=== PATIENT | female | born 1940 | race Caucasian/White ===

== ENCOUNTER 2019-03-11 08:13 | Emergency (ER) | payer MEDICARE ==
[2019-03-11 08:48] LABS: BASOPHILS % (AUTO) 0.5 % (0.0-5.0); EOSINOPHILS % (AUTO) 1.2 % (0.0-8.0); HEMATOCRIT 46.6 % (36-48); LYMPHOCYTES % (AUTO) 15.4 % (21.0-51.0); MEAN CORPUSCULAR HEMOGLOBIN 30.7 pg (27.0-33.0); MEAN CORPUSCULAR HGB CONC 33.4 g/dL (32.0-36.0); MEAN CORPUSCULAR VOLUME 91.9 fL (79-99); MONOCYTES % (AUTO) 7.6 % (3.0-13.0); NEUTROPHILS % (AUTO) 75.3 % (40.0-77.0); NUCLEATED RED BLOOD CELLS 0.1 % (0.0-0.19); PLATELET COUNT (AUTO) 134 K/uL (130-400); RED BLOOD CELL COUNT(AUTO) 5.07 MIL/uL (4.00-5.50); RED CELL DISTRIBUTION WIDTH 13.7 % (11.0-15.5); WHITE BLOOD COUNT (AUTO) 8.3 K/uL (4.8-10.8)
[2019-03-11 08:56] LABS: CREATININE 0.8 mg/dL (0.5-1.5); POTASSIUM 3.8 mmol/L (3.5-5.1)
[2019-03-11 09:00] LABS: ALBUMIN 3.8 g/dL (3.5-5.0); TOTAL PROTEIN, SERUM 7.3 g/dL (6.0-8.3)
[2019-03-11] MEDS ORDERED: DIAZEPAM 2 MG TAB ONE (09:22)
[2019-03-11] MEDS ORDERED: SODIUM CHLORIDE 0.9% 1000ML 1,000 ML IV ONE (09:23)
[2019-03-11] MEDS ORDERED: IOHEXOL 350 MG/ML 100ML INFUS..BTL IV ONE (09:34)
[2019-03-11] MEDS ORDERED: ASPIRIN 81MG TAB.CHEW ONE (09:58)
[2019-03-11 10:40] LABS: APPEARANCE,URINE Clear (CLEAR); BILIRUBIN,URINE Negative (NEGATIVE); COLOR,URINE Yellow (YELLOW); GLUCOSE, URINE (UA) Negative (NEGATIVE); KETONES,URINE Negative (NEGATIVE); LEUKOCYTE ESTERASE ,URINE Negative (NEGATIVE); NITRATE,URINE Negative (NEGATIVE); OCCULT BLOOD,URINE Negative (NEGATIVE); PH,URINE 5.5 (5.0-8.0); PROTEIN,URINE Negative (NEGATIVE); UROBILINOGEN,URINE 0.2 mg/dL (0.2-1.0)
== END 2019-03-11 11:56 | disposition home or self-care (01) ==
LOC: EDH 08:13
DX: S22.32XA Fracture of one rib, left side, initial encounter for closed fracture (principal); I48.91 Unspecified atrial fibrillation; X58.XXXA Exposure to other specified factors, initial encounter; Y93.89 Activity, other specified; Y92.89 Other specified places as the place of occurrence of the external cause; Y99.8 Other external cause status
CPT/HCPCS: 36415; 71260; 74177; 80053; 81003; 83690; 84484; 85025; 93005 ×2; 99285; J7030; Q9967

== ENCOUNTER → 2025-01-07 | Outpatient (CLI) | payer MEDICARE | END | disposition home or self-care (01) | LOC: WHH 08:05 | PROVIDERS: ATTEND Family Medicine | DX: S81.001D Unspecified open wound, right knee, subsequent encounter (principal); L97.412 Non-pressure chronic ulcer of right heel and midfoot with fat layer exposed; I10 Essential (primary) hypertension; E03.9 Hypothyroidism, unspecified; I48.91 Unspecified atrial fibrillation; F32.A Depression, unspecified; Z79.01 Long term (current) use of anticoagulants; W31.89XD Contact with other specified machinery, subsequent encounter | CPT/HCPCS: G0463; A6197; A6260 ==

== ENCOUNTER → 2025-01-21 | Outpatient (CLI) | payer MEDICARE | END | disposition home or self-care (01) | LOC: WHH 08:11 | PROVIDERS: ATTEND Family Medicine | DX: S81.001D Unspecified open wound, right knee, subsequent encounter (principal); L97.412 Non-pressure chronic ulcer of right heel and midfoot with fat layer exposed; I10 Essential (primary) hypertension; E03.9 Hypothyroidism, unspecified; I48.91 Unspecified atrial fibrillation; F32.A Depression, unspecified; Z79.01 Long term (current) use of anticoagulants; W31.89XD Contact with other specified machinery, subsequent encounter | CPT/HCPCS: G0463; A6212; A6209 ==

== ENCOUNTER → 2025-02-04 | Outpatient (CLI) | payer MEDICARE ==
[~2025-02-04] MED LIST: SILVER NITRATE APPLICATOR 1 SWAB TP ONE
== END | disposition home or self-care (01) ==
LOC: WHH 08:11
PROVIDERS: ATTEND Family Medicine
DX: S81.001D Unspecified open wound, right knee, subsequent encounter (principal); L97.412 Non-pressure chronic ulcer of right heel and midfoot with fat layer exposed; I10 Essential (primary) hypertension; E03.9 Hypothyroidism, unspecified; I48.91 Unspecified atrial fibrillation; F32.A Depression, unspecified; Z79.01 Long term (current) use of anticoagulants; W31.89XD Contact with other specified machinery, subsequent encounter
CPT/HCPCS: 17250; A6209; A4450

== ENCOUNTER 2025-02-11 08:04 | Outpatient (CLI) | payer MEDICARE | END 2025-02-11 16:00 | disposition home or self-care (01) | LOC: WHH 08:04 | PROVIDERS: ATTEND Family Medicine | DX: S81.001D Unspecified open wound, right knee, subsequent encounter (principal); L97.412 Non-pressure chronic ulcer of right heel and midfoot with fat layer exposed; I10 Essential (primary) hypertension; E03.9 Hypothyroidism, unspecified; I48.91 Unspecified atrial fibrillation; F32.A Depression, unspecified; Z79.01 Long term (current) use of anticoagulants; W31.89XD Contact with other specified machinery, subsequent encounter | CPT/HCPCS: G0463 ==